=== PATIENT | male | born 1955 | race Caucasian/White ===

== ENCOUNTER 2019-01-12 04:45 | Inpatient (IN) ==
--- NOTE | 2018-12-16 10:12 | PAT Medication Instructions ---
Medication Instructions Date of Service December 16, 2018 Home Medications finasteride 5 mg PO QAM ibuprofen [Advil] 400 mg PO QAM omeprazole 20 mg PO QAM tamsulosin 0.4 mg PO QAM ASK your surgeon for instructions ibuprofen [Advil] 400 mg PO QAM Take morning of surgery With a small sip of water, OTHERWISE NOTHING TO EAT OR DRINK AFTER MIDNIGHT: finasteride 5 mg PO QAM omeprazole 20 mg PO QAM tamsulosin 0.4 mg PO QAM Other Notes If you have any questions please call us at [phone] or [phone] or [phone] or [phone]
--- NOTE | 2018-12-17 08:48 | Anesthesiology Consultation ---
Date of Service December 17, 2018 Assessment & Plan (1) Encounter for pre-operative examination: - Awaiting review preop testing (labs, EKG, CXR). - PCP: 12/16/18: "Pt is an acceptable surgical candidate" Chart Review Chart Review: Patient seen in Pre Admission Testing Teaching & Discussion Pre-Anesthesia Teaching/Discussion Notes: Instructed NPO after midnight before surgery,except medications with 15 cc of water. Medication instructions provided according to the PAT guidelines. History Surgery Operation Date: 01/12/19 07:00 Proposed Procedures p Left Total Knee Arthroplasty - River Costello MD Height/Weight Height: 5 ft 10 in Weight: 113.3 kg Allergies Allergy/AdvReac Type Severity Reaction Status Date / Time No Known Allergies Allergy Mild Verified 12/10/18 11:37 Medications Home Medications Medication Instructions Recorded Confirmed Last Taken finasteride 5 mg PO QAM 12/10/18 12/10/18 Unknown ibuprofen [Advil] 400 mg PO QAM 12/10/18 12/10/18 Unknown omeprazole 20 mg PO QAM 12/10/18 12/10/18 Unknown tamsulosin 0.4 mg PO QAM 12/10/18 12/10/18 Unknown Past Medical History Medical History BPH (benign prostatic hyperplasia) GERD (gastroesophageal reflux disease) controlled Obesity Osteoarthritis Exercise / Class Metabolic Activity II 4-5 Yardwork/Stairs/Walk up hill Past Family History Family History Mother Family history of diabetes mellitus Past Surgical History Surgical History History of appendectomy History of arthroscopy LEFT KNEE History of colonoscopy History of tooth extraction Past Anesthesia History No Hx of Anesthesia Complications and No Family Hx of Anesthesia Complications History of PONV No Hx of PONV and No Hx of Motion Sickness Social History Smoking Status: Never smoker Do You Dip or Chew Tobacco: No (QUIT 37 YEARS AGO) Hx Alcohol Use: Yes Alcohol type: beer alcohol intake frequency: holidays/special occasions only Hx Substance Use: No substance use type: does not use Review of Systems Reflux controlled. Patient denies chest pain, shortness of breath, dyspnea on exertion, cough, wheezing, palpitations. Physical Exam Vital Signs VITALS BP 152/92 P 52 TEMP 98.4 SP02 96%RA RESP 16 PHYSICAL Full neck and c-spine range of motion. Full TMJ range of motion. TMD 3.5 finger breaths Mallampati Score 2 Dentition: full upper dentures, lower sides/molars missing Lungs: clear throughout to auscultation Cardiac: regular rate and rhythm, no murmurs noted Spine: normal Carotid arteries: negative bruit Extremities: no edema
--- NOTE | 2018-12-17 10:03 | XRay Report ---
XR chest Pre-admission PA/Lat CLINICAL HISTORY: 63 years-old Male presenting with preoperative assessment, asymptomatic. TECHNIQUE: PA and lateral views of the chest were obtained. COMPARISON: None. FINDINGS: Atherosclerosis of the aortic arch. Cardiac silhouette enlarged. Incidental note made of an azygos fi ssure. Lungs and pleural spaces clear. Osseous structures normal. Upper abdomen normal. IMPRESSION: 1. Cardiomegaly. No other convincing evidence of acute cardiopulmonary disease. Electronically signed by: Garret Juarez M.D. 12/17/2018 10:02 AM
[2018-12-17 11:42] LABS: BUN Creatinine Ratio 13.8 (10-20); Calcium 8.5 mg/dl (8.5-10.1); Creatinine Clr Calc Pharmacy 93.8 ml/min; Est GFR (African American) 92.2; Est GFR (Non-African American) 79.6; Potassium 3.9 mmol/L (3.5-5.1)
[2018-12-17 11:51] LABS: Partial Thromboplastin Ratio 1.1; Partial Thromboplastin Time 28.8 Seconds (21.0-31.0); Prothrombin Time 10.5 Seconds (9.0-12.0)
[2018-12-17 11:55] LABS: Appearance Urine Cloudy (Clear); Bacteria Urine Automated 4+ (Negative); Bilirubin Urine Negative (Negative); Blood Urine Negative (Negative); Color Urine Yellow; Epithelial Cell Urine Auto >30 /lpf (0-5); Glucose Urine UA Negative (Negative); Ketones Urine Negative (Negative); Leukocyte Esterase Urine Trace (Negative); Nitrite Urine Positive (Negative); Protein Urine Negative (Negative); RBC Urine Automated 0-4 /hpf (0-4); Urobilinogen Urine Negative (Negative)
[2018-12-17 12:24] LABS: Basophils # (auto) 0.04 K/uL (0-0.2); Basophils % (auto) 0.5 %; Eosinophils # (auto) 0.16 K/uL (0-0.5); Eosinophils % (auto) 2.2 %; Hematocrit (blood only) 46.6 % (42-52); Hemoglobin 16.7 g/dL (14.0-18.0); Immature Granulocytes # (auto) 0.02 K/uL (0.00-0.02); Immature Granulocytes % (auto) 0.3 %; Lymphocytes # (auto) 1.75 K/uL (1.2-3.4); Lymphocytes % (auto) 23.7 %; Mean Corpuscular Hemoglobin 31.5 pg (25-34); Mean Corpuscular Hgb Conc 35.8 g/dL (32-36); Mean Corpuscular Volume 87.9 fL (80-100); Mean Platelet Volume 10.9 fL (7.4-10.4); Monocytes # (auto) 0.55 K/uL (0.11-0.59); Monocytes % (auto) 7.4 %; Neutrophils # (auto) 4.87 K/uL (1.4-6.5); Neutrophils % (auto) 65.9 %; Platelet Count 191 K/uL (130-400); RDW Coefficient of Variation 13.2 % (11.5-14.5); RDW Standard Deviation 42.9 fL (36.4-46.3); White Blood Count 7.39 K/uL (4.8-10.8)
--- NOTE | 2018-12-21 18:41 | History and Physical Report ---
DATE OF ADMISSION: 01/12/2019 CHIEF COMPLAINT: Left knee degenerative joint disease. HISTORY OF PRESENT ILLNESS: This 63-year-old white male presents to the office with complaints of left knee pain that has been ongoing for several years. It has become worse over the last 10 months. He slipped in March 2018 when getting out of his truck. Pain has persisted since then. He has a history of previous medial meniscectomy in the left knee in the . He has tried conservative care measures including activity modification, oral pain medication, oral anti-inflammatories, and cortisone injections without lasting relief. He elects to proceed with left total knee arthroplasty in hopes of alleviating his discomfort. Preoperative imaging has been obtained. PAST MEDICAL HISTORY: Significant for GERD, osteoarthritis, and BPH. PREVIOUS SURGERIES: Appendectomy, left knee open medial meniscectomy in the . ALLERGIES: NKDA. CURRENT MEDICATIONS: Finasteride 5 mg p.o. daily, tamsulosin 0.4 mg p.o. daily, omeprazole 20 mg p.o. daily, ibuprofen 400 mg p.o. q. 6 hours p.r.n. SOCIAL HISTORY: The patient is , semi-retired. No tobacco use. No ETOH use. FAMILY HISTORY: Noncontributory. REVIEW OF SYSTEMS: A total of 10 systems are reviewed and are significant only for above stated conditions. PHYSICAL EXAMINATION: VITAL SIGNS: Temperature 36.7, pulse 67, BP 160/80, O2 sat 98% on room air. Weight is 112 kilos, height 177 cm. GENERAL: Well-developed, well-nourished elderly white male in no acute distress. Sitting in a chair. Alert and oriented. SKIN: Warm and dry with good turgor. No rashes or lesions. No ecchymosis or erythema. No intraarticular effusion. Old scar present on the left knee that is medial. HEENT: Normocephalic, atraumatic. Eyes PERRLA, EOMI. Nares patent bilaterally without turbinate enlargement. Oropharynx without erythema or exudate. No lesions noted. Uvula midline. Oral mucosa moist. Fair dentition. Fillings and caps are noted. HEART: RRR. No MGR. LUNGS: Clear to auscultation bilaterally. No crackles, rhonchi or wheezing. Good air movement. ABDOMEN: Bowel sounds present x4, soft, nontender. No organomegaly. No masses. Moderately obese. MUSCULOSKELETAL: Left knee evaluation reveals nearly full extension. He lacks just 3-4 degrees. Flexion to greater than 100 degrees. Strength is 5/5 with good quad tone. Visible osteoarthritic changes in the left knee with lateral translation. He has focal discomfort with palpation over the medial joint line. No lateral joint line discomfort with palpation today. Palpable crepitus with motion. No defect in the patellar tendon or quadriceps tendon. Stable collateral ligaments. Varus alignment. NEUROLOGIC: Cranial nerves II through XII are intact. Gross sensation is intact across the left knee by soft touch. Peripheral pulses are 2+. DATA: Radiographic imaging previously obtained shows end-stage DJD of the left knee. Periarticular osteophytes, subchondral sclerosis, and joint space narrowing are all present. He is [id number] in the medial compartment. IMPRESSION: Left knee end-stage degenerative joint disease. PLAN: Postoperative prescriptions for Percocet and Coumadin will be provided at discharge from the hospital. Anticipate discharge to home with either home health services or outpatient services. He already has access to a walker and cane. Preoperative lab work, EKG, and chest x-ray have been ordered. He saw his PCP, Dr. Johnson, yesterday for medical clearance. He will sign his informed consent to proceed with total knee arthroplasty the day of surgery.
[2019-01-12] MEDS ORDERED: TRANEXAMIC ACID 1,000 MG **IV Pre-op IV SCH (06:00)
[2019-01-12] MEDS ORDERED: LR 60ML/HR IV SCH (06:00)
[2019-01-12] MEDS ORDERED: ROPIVACAINE 0.5% HCL/PF 150 MG, BUPIVACAINE 0.5% MPF 30 ML, EPINEPHrine 0.15 MG, Ketoro... INFIL SCH (06:00)
[2019-01-12] MEDS ORDERED: LR 500ML BOLUS, THEN 15ML/HR IV SCH (06:00)
[2019-01-12] MEDS ORDERED: CEFAZOLIN 2000MG 2,000 MG/15 ML SYR IV SCH (06:00)
[2019-01-12] MEDS ORDERED: DEXAMETHASONE SOD INJ 4 MG/ML VIAL ONE (06:14)
[2019-01-12] MEDS ORDERED: BUPIVACAINE 0.5 % 5 MG/1 ML PF 10ML VIAL ONE (06:14)
[2019-01-12] MEDS ORDERED: BUPIVACAINE/EPINEPHRINE 0.25% 1:200,000 30 ML VIAL ONE (06:14)
--- NOTE | 2019-01-12 06:37 | History & Physical Bridge Note ---
Date of Service January 12, 2019 History & Physical Bridge Note I have examined the patient, reviewed the History & Physical and in the interval since the performance of the History & Physical I have noted the following changes of clinical significance: consent obtained.no changes noted
[2019-01-12] MEDS ORDERED: MIDAZOLAM HCL 1 MG/ML 2ML VIAL ONE ×2 (06:40→07:27)
[2019-01-12] MEDS ORDERED: fentaNYL citrate 100 MCG/2 ML VIAL ONE (06:40)
[2019-01-12] MEDS ORDERED: PROPOFOL IV EMULSION 10 MG/ML 20 ML VIAL IV ONE (06:40)
[2019-01-12] MEDS ORDERED: LIDOCAINE HCL 2% 2 ML VIAL/AMP(20MG/ML) INFIL ONE (06:40)
[2019-01-12] MEDS ORDERED: ORTHO JOINT ANESTHETIC ONE (06:42)
[2019-01-12] MEDS ORDERED: ePHEDrine sulfate 50 MG/ML AMP IV PRN (06:57)
[2019-01-12] MEDS ORDERED: ONDANSETRON INJ 2 MG/ML 2 ML VIAL IV PRN ×2 (06:57→09:40)
[2019-01-12] MEDS ORDERED: fentaNYL citrate 100 MCG/2 ML VIAL IV PRN (06:57)
[2019-01-12] MEDS ORDERED: ATROPINE SULFATE 0.1 MG/ML 10ML SYR IV PRN (06:57)
[2019-01-12] MEDS ORDERED: PHENYLEPHRINE 100MCG/ML 5ML SYR ONE (08:26)
[2019-01-12] MEDS ORDERED: ePHEDrine sulfate 50 MG/ML AMP ONE (08:26)
--- NOTE | 2019-01-12 08:37 | Post Operative Brief Note ---
Immediate Post Op Note v1 Date of Surgery January 12, 2019 Pre & Post Diagnosis Operation Date: 01/12/19 07:00 Pre-Op Diagnosis: Left Knee End-Stage Degenerative Joint Disease Post-Op Diagnosis: Left Knee End-Stage Degenerative Joint Disease I identified the patient and participated in the time-out.: Yes Procedure Operation Date: 01/12/19 07:00 Actual Procedures p Left Total Knee Arthroplasty(Left) - River Costello MD Surgeon River Costello MD Still Photographer [facility] Estimated Blood Loss 25 Findings Consistent with Post-Op Diagnosis
--- NOTE | 2019-01-12 08:45 | Operative Report ---
Post Operative Report Pre & Post Diagnosis Operation Date: 01/12/19 07:00 Pre-Op Diagnosis: Left Knee End-Stage Degenerative Joint Disease Post-Op Diagnosis: Left Knee End-Stage Degenerative Joint Disease I identified the patient and participated in the time-out.: Yes Procedure Operation Date: 01/12/19 07:00 Actual Procedures p Left Total Knee Arthroplasty(Left) - River Costello MD Surgeon KOURTNEY Costello MD Literacy Tutor saundra Estimated Blood Loss 25 Findings Consistent with Post-Op Diagnosis Specimens see operative report Drains none Complications none Disposition Accompanied Patient To Recovery: Yes Disposition: Recovery Room Indications This 63-year-old white male presented to the office with complaints of intractable left knee pain. He had tried conservative care measures including NSAIDs and activity modification, without improvement. He elected to proceed with surgical intervention after being educated about potential risks and outcomes. Preoperative imaging was obtained. Description of Procedure Patient was administered a spinal anesthetic and then taken to the operating room where he was given sedation. He was prepped and draped in the usual sterile fashion. Please see Dr. Costello's operative report for specifics of the procedure. I was present for the entire case from initial patient positioning through final wound closure. Assistance was provided in tissue retraction, hemostasis, trial implant placement, final implant placement, and final wound closure. Patient was taken to the recovery room in satisfactory condition. I attest to the content of the Intraoperative Record and any orders documented therein. Any exceptions are noted below.
--- NOTE | 2019-01-12 08:54 | Operative Report ---
DATE OF OPERATION: 01/12/2019 SURGEON: River Costello MD COMMERCIAL CREDIT OFFICER: River Joyce PA-C. No resident or fellow available. PREOPERATIVE DIAGNOSES: Severe osteoarthritis, left knee with marked varus flexion deformity and subluxation laterally of the tibia. POSTOPERATIVE DIAGNOSES: Severe osteoarthritis, left knee with marked varus flexion deformity and subluxation laterally of the tibia. OPERATION PERFORMED: Cemented left total knee replacement. PERIOPERATIVE SITUATION: Medically cleared male with intractable knee pain, failed conservative management for years, old medial open meniscectomy with a small incision over 50 years old. At this point in time, wants to proceed with surgical treatment, was advised concerning potential wound issue, but would use a midline incision. DESCRIPTION OF PROCEDURE: The patient was appropriately identified, site verified, consent verified. Antibiotics confirmed as being given. The left lower extremity was prepped and draped in usual routine fashion. He had about a degree flexion contracture. Tourniquet was inflated to 300 mmHg after exsanguination of limb with a rubber Esmarch bandage for a total of roughly 55 minutes. Midline exposure utilized. Parapatellar arthrotomy performed, had severe tightness of the extensor mechanism. This was tediously released to allow appropriate eversion of the patella and once this was done, a synovectomy was completed. Medial releases were performed to get the varus contracture out and then the knee was flexed. There was no ACL. There was overgrowth of the notch. This was all removed with an osteotome and the PCL identified and the centering hole made. Distal femur was then resected 14 mm, proximal tibia resected 4 mm, extension gap was excellent. The femur was sized between a 5 and a 4, was measured at 5 and cut 4. There was no notching. Flexion gap was checked. It was excellent. The box cut was then made and the size 4 fit well. The tibia was sized to a 4, appropriate broaching and reaming carried up and a trial reduction with a 12.5 and 15 was made and the 15 fit best. The patella was then resected leaving about 15 mm. There was an old bipartite portion of the patella that was loose. This was excised. The extensor mechanism was intact. Seating holes were made for the patella and the patella tracked well. It was a size 41. The Orthomix was then injected all about the knee including posteriorly. All trial implants were removed. Wound irrigated with Betadine Pulsavac and then the permanent cemented into position, tibia, femur and patella in that order. After 12 minutes, the tourniquet deflated. Minor bleeding points controlled with electrocautery. At 14 minutes, the knee flexed. Minor cement removal on the medial femur and the wound irrigated. The permanent liner placed, knee reduced and then closed with #2 Vicryl, #1 Vicryl, 2-0 Vicryl and stainless steel clips. Appropriate dressing applied. DVT prophylaxis will be with Coumadin. ESTIMATED BLOOD LOSS: 25 mL. CRYSTALLOID: Per anesthesia. BONE PATHOLOGY: Pending. SUMMARY OF IMPLANTS: Size 4 left femur, posterior cruciate substituting size 4 mobile bearing tray, size 41 patella, size 4 x 15 posterior cruciate substituting spacer. Two bags of Palacos G cement. Bone pathology pending. EBL 25 mL. DVT prophylaxis with Coumadin. I attest to the content of the Intraoperative Record and any orders documented therein. Any exceptions are noted below. MTDD
--- NOTE | 2019-01-12 09:05 | XRay Report ---
XR knee LT 1 or 2V routine CLINICAL HISTORY: Postoperative evaluation. COMPARISON: Left knee radiographs April 13, 2018. FINDINGS: Alignment of the total left knee arthroplasty is anatomic. There is no fracture or unexpec alanis radiopaque foreign body. There are skin chucky. IMPRESSION: Expected findings following total left knee arthroplasty. Electronically signed by: Sherwin Townsend M.D. 01/12/2019 9:04 AM
--- NOTE | 2019-01-12 09:17 | Anesthesiology Progress Note ---
Date of Service January 12, 2019 Anesthesia Post Procedure Vital Signs Vital Signs: Temp Pulse Pulse Resp BP Pulse Ox 01/12/19 09:10 36.8 C 66 16 144/75 H 97 01/12/19 09:00 71 19 132/62 97 01/12/19 08:50 72 16 104/71 97 01/12/19 08:43 37.0 C 76 24 121/73 97 01/12/19 05:35 36.7 C 65 20 177/111 H 95 Transfer of Care Handoff Completed per policy Notes Mental Status: alert / awake / arousable Patient Amnestic to Procedure: Yes Nausea / Vomiting: adequately controlled Pain: adequately controlled Airway Patency, RR, SpO2: stable & adequate BP & HR: stable & adequate Hydration State: stable & adequate Neuraxial Anesthesia: was administered and sensory block is resolving Anesthetic Complications: no major complications apparent
[2019-01-12] MEDS ORDERED: NALOXONE HCL 0.4 MG/1 ML VIAL/CARP IV PRN (09:40)
[2019-01-12] MEDS ORDERED: OXYCODONE HCL IR 5 MG TAB (IMMEDIATE RELEASE) PO PRN (09:40)
[2019-01-12] MEDS ORDERED: HYDROmorphone INJ 0.5 MG/0.5 ML SYR IV PRN (09:40)
[2019-01-12] MEDS ORDERED: MAGNESIUM HYDROXIDE SUSP 30 ML UDC PO PRN (09:40)
[2019-01-12] MEDS ORDERED: BISACODYL 10 MG SUPP PR PRN (09:40)
[2019-01-12] MEDS ORDERED: ALUMINUM/MAGNESIUM SUSP 30 ML UDC PO PRN (09:40)
[2019-01-12] MEDS ORDERED: DiphenhydrAMINE HCL 50 MG/ML VIAL IV PRN (09:40)
[2019-01-12] MEDS ORDERED: METOCLOPRAMIDE HCL INJ 5 MG/ML 2 ML VIAL IV PRN (09:40)
[2019-01-12] MEDS ORDERED: SODIUM CHLORIDE 0.9% 1000ML 1,000 ML IV SCH (10:15)
[2019-01-12] MEDS: KETOROLAC TROMETHAMINE 15 MG/ML VIAL IV SCH ×3 (10:39→21:28)
[2019-01-12] MEDS: FINASTERIDE 5 MG TAB PO SCH (10:40)
[2019-01-12] MEDS: DOCUSATE SODIUM 100 MG CAP PO SCH ×2 (10:40→20:29)
[2019-01-12] MEDS: TAMSULOSIN HCL 0.4 MG CAP PO SCH (10:40)
[2019-01-12] MEDS: PANTOprazole 40 MG TAB PO SCH (10:40)
[2019-01-12] MEDS: MULTIVITAMIN TAB PO SCH (10:40)
--- NOTE | 2019-01-12 11:08 | Discharge Summary ---
DATE OF ADMISSION: 01/12/2019 DATE OF DISCHARGE POTENTIAL: 01/13/2019 CHIEF COMPLAINT: Left knee pain. HISTORY OF PRESENT ILLNESS: A 63-year-old male underwent elective left total knee replacement for severe varus flexion deformity and lateral subluxation of his tibia. At this point in time, his hospital course has been uneventful. PAST MEDICAL HISTORY: Remarkable for GERD, osteoarthritis, and BPH. PAST SURGICAL HISTORY: Includes appendectomy, open meniscectomy 50 years ago in the same knee. ALLERGIES: None. PREADMISSION MEDICATIONS: Include finasteride, tamsulosin, omeprazole and ibuprofen. He will discontinue the ibuprofen, continue all his other medications, pain medication, see prescription. Coumadin, keep INR 1.8-2.2. SOCIAL HISTORY: Reveals he is , retired. No tobacco or alcohol use. REVIEW OF SYSTEMS: Noncontributory. Postop x-rays look excellent. ASSESSMENT: Overall, doing well. He has normal neurovascular check. He is able to do a straight leg raise. He is eating and drinking. If he does well with PT/OT, I will discharge tomorrow morning.
--- NOTE | 2019-01-12 11:18 | Progress Note ---
DATE: SUBJECTIVE: Postop check, status post left total knee replacement. The patient is sitting up in bed comfortably. Denies any chest pain, shortness of breath, fever, chills, nausea, vomiting or headache. He is consuming p.o. His vital signs are stable. He is afebrile. He has intact femoral and sciatic nerve functioning. He can do active dorsi and plantar flexion of his toes, ankle, and can do a straight leg raise. He has minimal pain. His postop x-rays look excellent. ASSESSMENT: Doing well. Plan is to discharge home tomorrow. Hep-Lock IV.
[2019-01-12] MEDS: ORTHO WARFARIN NOMOGRAM SCH (13:13)
[2019-01-12] MEDS: TRANEXAMIC ACID 1,000 MG in 0.9 % SODIUM CHLORIDE 100 ML IV SCH ×2 (13:31→14:25)
[2019-01-12] MEDS: ACETAMINOPHEN 500 MG TAB PO SCH ×2 (13:31→20:29)
[2019-01-12] MEDS: CEFAZOLIN 2000MG 2,000 MG/15 ML SYR IV SCH ×2 (13:31→21:28)
[2019-01-12] MEDS ORDERED: WARFARIN SOD 5 MG TAB PO SCH (16:00)
[2019-01-12] MEDS: ASCORBIC ACID 500 MG TAB PO SCH (18:08)
[2019-01-12] MEDS: FERROUS GLUCONATE 324 MG TAB PO SCH (18:08)
[2019-01-12] MEDS ORDERED: SENNA 8.6 MG TAB PO SCH (21:00)
[2019-01-13] MEDS: ACETAMINOPHEN 500 MG TAB PO SCH (05:48)
[2019-01-13] MEDS: KETOROLAC TROMETHAMINE 15 MG/ML VIAL IV SCH (05:48)
[2019-01-13 06:33] LABS: Hemoglobin 13.7 g/dL (14.0-18.0); Mean Corpuscular Hemoglobin 30.4 pg (25-34); Mean Corpuscular Hgb Conc 35.1 g/dL (32-36); Mean Corpuscular Volume 86.7 fL (80-100); Mean Platelet Volume 9.9 fL (7.4-10.4); Platelet Count 182 K/uL (130-400); RDW Coefficient of Variation 13.4 % (11.5-14.5); White Blood Count 14.98 K/uL (4.8-10.8)
[2019-01-13 06:44] LABS: INR 1.1 (0.9-1.1); Prothrombin Time 11.1 Seconds (9.0-12.0)
[2019-01-13 07:09] LABS: BUN Creatinine Ratio 21.4 (10-20); Calcium 8.3 mg/dl (8.5-10.1); Creatinine Clr Calc Pharmacy 90.1 ml/min; Est GFR (African American) 87.9; Est GFR (Non-African American) 75.9; Potassium 4.1 mmol/L (3.5-5.1)
[2019-01-13] MEDS ORDERED: dexAMETHasone 10 MG in SYRINGE 0 ML IV SCH (08:00)
--- NOTE | 2019-01-13 08:14 | Progress Note ---
DATE: 01/12/2019 SUBJECTIVE: Postop day #1 status post left total knee replacement. The patient is in good spirits. Denies chest pain, shortness of breath, fever, chills, nausea, vomiting or headache. OBJECTIVE: Vital signs are stable. He is afebrile. Wound dressing clean, dry and intact. The femoral sciatic nerve functioning well. Can do a straight leg raise. Calves nontender. Abdomen soft. Hematocrit is stable at 39. INR is pending. PRP pending. ASSESSMENT: Doing well. Plan is to discharge today after PT, OT. Dressing changed by PA this morning. Discharge on Coumadin per INR results.
--- NOTE | 2019-01-13 08:47 | Orthopedic Progress Note ---
Date of Service January 13, 2019 Assessment & Plan (1) Status post total knee replacement, left: Dressing was changed today by me. Neurovascular status was checked before and after dressing placement. Continue with his compression stockings for 6 weeks. Dressing should remain in place until Thursday. It may be changed for soiling at that point as needed. PT/OT today. Anticipate discharge to home with [facility] for home health services. Follow-up in the office in 2 weeks as scheduled for staple removal. Ice and elevate the knee frequently to reduce pain and swelling. Prescriptions for Percocet and Coumadin were E scribed. PDMP was checked and was negative. Subjective Patient was seen in his room this morning. He was sitting in a chair and appeared quite comfortable. He stated he was waiting for breakfast. He had a good night. He states he slept fairly well. Denies any chest pain, shortness of breath, nausea, vomiting, or abdominal pain. The worst area of discomfort on his left leg is in the upper thigh, at the area of the surgical tourniquet. No other complaints. He has been up and walking. Review of Systems Review of Systems: unchanged from preop Physical Exam Physical Exam: General: Well-developed, well-nourished, elderly white male, in no acute distress. Sitting on a chair. Alert and oriented. Actually looks quite comfortable. Musculoskeletal: Left knee evaluation reveals an intact postsurgical dressing. Upon removal, there is scant dried blood on his dressings. [place] are intact. Wound edges are well approximated. No erythema or warmth. Expected postoperative ecchymosis and edema. Intact motor function to the hip, knee, and ankle. He is able to perform straight leg raise. Neurologic: Gross sensation is intact across the left leg by soft touch. Peripheral pulses are 2+. Results & Data Vital Signs (Past 12 Hours) Vital Signs Temp Pulse Resp BP Pulse Ox 01/13/19 07:25 36.8 C 68 16 151/96 H 96 01/13/19 03:45 36.7 C 63 18 128/73 94 01/12/19 23:26 36.7 C 65 18 116/74 94 Laboratory Results H&H obtained today is 13 7 and 39.0. INR is 1.1. PRP is unremarkable.
[2019-01-13] MEDS: TAMSULOSIN HCL 0.4 MG CAP PO SCH (10:02)
[2019-01-13] MEDS: FINASTERIDE 5 MG TAB PO SCH (10:02)
[2019-01-13] MEDS: MULTIVITAMIN TAB PO SCH (10:03)
[2019-01-13] MEDS: DOCUSATE SODIUM 100 MG CAP PO SCH (10:03)
[2019-01-13] MEDS: ASCORBIC ACID 500 MG TAB PO SCH (10:03)
[2019-01-13] MEDS: PANTOprazole 40 MG TAB PO SCH (10:04)
[2019-01-13] MEDS: FERROUS GLUCONATE 324 MG TAB PO SCH (10:04)
[2019-01-13] MEDS: ORTHO WARFARIN NOMOGRAM SCH (10:33)
[2019-01-13] MEDS ORDERED: WARFARIN SOD 5 MG TAB PO SCH (10:45)
== END 2019-01-13 11:45 | disposition home health service (06) | DRG 470 ==
LOC: ASU 04:45 → 3N 08:50